=== PATIENT | male | born 1960 | race Caucasian/White ===

== ENCOUNTER 2020-08-22 20:14 | Inpatient (IN) | payer OTHER ==
[~2020-08-22 20:14] MED LIST: Iopamidol-370 76% 500 ML 1 ML ONE
[2020-08-22 20:44] LABS: #Basophils 0.1 thou/uL (0.0-0.2); #Eosinphils 0.1 thou/uL (0.0-0.7); #Lymphocytes 2.5 thou/uL (1.20-3.40); #Monocytes 1.3 thou/uL (0.11-0.59); #Neutrophils 10.9 thou/uL (1.40-6.50); %Basophils 0.4 % (0.0-1.0); %Eosinophils 0.3 % (0.0-10.0); %Lymphocytes 16.9 % (21.0-51.0); %Monocytes 8.6 % (0.0-10.0); %Neutrophils 73.8 % (42.0-75.0); Hemoglobin 15.3 g/dL (14.0-18.0); Mean Corpuscular HGB CONC 34.3 g/dL (32.0-36.0); Mean Corpuscular Hemoglobin 30.3 pg (27.0-31.0); Mean Corpuscular Volume 88.5 fL (78.0-98.0); Mean Platelet Volume 7.5 fL (7.4-10.4); Platelet Count 308 thou/uL (130-400); RBC Distribution Width 12.1 % (11.5-14.5); Red Blood Cell (RBC) Count 5.04 mill/uL (4.70-6.10); White Blood Cell (WBC) Count 14.8 thou/uL (4.8-10.8)
[2020-08-22 21:11] LABS: ALT (SGPT) 35 U/L (8-55); AST (SGOT) 125 U/L (5-34); Albumin 4.1 g/dL (3.4-4.8); Alkaline Phosphatase 68 U/L (40-110); Anion Gap 16 mmol/L (10-20); BUN (Urea Nitrogen) 25 mg/dL (8.4-25.7); Bilirubin, Total 2.1 mg/dL (0.2-1.2); Calc. Creatinine Clearance 0 mL/min (70-130); Calcium 9.2 mg/dL (7.8-10.44); Carbon Dioxide 19 mmol/L (23-31); Chloride 106 mmol/L (98-107); Globulin 2.8 g/dL (2.4-3.5); Glucose 117 mg/dL (80-115); Potassium 3.4 mmol/L (3.5-5.1); Protein, Total 6.9 g/dL (5.8-8.1); Sodium 138 mmol/L (136-145)
[2020-08-22 21:20] LABS: Bacteria/HPF None Seen HPF (None Seen); Bilirubin Negative (Negative); Blood, Urine 2+ (Negative); Clarity Clear (Clear); Glucose, Urine (Dipstick) Normal (Negative); Ketone, Urine Negative (Negative); Leukocyte Negative Leu/uL (Negative); Nitrite Negative (Negative); Protein, Urine (Dipstick) 30 mg/dL (Neg-Trace); Specific Gravity, Urine 1.013 (1.002-1.036); Squamous Epithelial None Seen HPF (0-3); Urobilinogen Normal mg/dL (Less than 2); WBC/HPF 0-3 HPF (0-3); pH, Urine 5.5 (5.0-9.0)
--- NOTE | 2020-08-22 21:21 | RAD ---
EXAM: Single view of the chest HISTORY: Confusion COMPARISON: None FINDINGS: Single view of the chest shows a normal sized cardiomediastinal silhouette. Increased inte rstitial lung markings are present. There is no evidence of consolidation, mass, or pleural effusion. No acute osseous abnormality. IMPRESSION: No evidence of acute cardiopulmonary disease
[2020-08-22 21:28] LABS: Amphetamine Not Detected (NotDetected); Barbiturates Screen Not Detected (NotDetected); Benzodiazepine Screen Not Detected (NotDetected); Cocaine Metabolite Screen Not Detected (NotDetected); Medtox Control Line Valid? VALID (VALID); Medtox Reader # READER 1; Methadone Not Detected (NotDetected); Methamphetamine Not Detected (NotDetected); Opiate Screen Not Detected (NotDetected); Oxycodone Screen Not Detected (NotDetected); Phencyclidine (PCP) Not Detected (NotDetected); THC/Cannabinoid Screen Not Detected (NotDetected); Tricyclic Screen Not Detected (NotDetected)
[2020-08-22 21:32] LABS: Acetaminophen Less than 6.0 mcg/mL (10.0-30.0); Alcohol Less than 10 mg/dL (Less than 10); Salicylate Less than 8.0 mg/dL (15.0-30.0)
[2020-08-22] MEDS ORDERED: Labetalol HCl 100 MG/20 ML VIAL ONE (21:42)
[2020-08-22] MEDS ORDERED: Aspirin Chewable 81 MG TAB ONE (21:42)
--- NOTE | 2020-08-22 21:45 | CT ---
EXAM: CT brain without contrast HISTORY: Confusion and blurry vision COMPARISON: None TECHNIQUE: Multiple contiguous axial images were obtained and a CT of the brain without contrast. FINDINGS: There are scattered hypodensities in the subcortical and periventricular white matter consi stent with small vessel ischemic disease. There is a 2.3 cm area of parenchymal hemorrhage in the right periventricular white matter with surrounding edema. No intraventricular hemorrhage. There is n o evidence of hydrocephalus. The calvarium and overlying soft tissues are unremarkable. The visualized paranasal sinuses and masto id air cells are well aerated. IMPRESSION: Parenchymal hemorrhage in the right parietal white matter as above Dr. Mann notified of findings at 9:44 PM on 08/22/2020
[2020-08-22 21:58] LABS: CKMB 51.5 ng/mL (0-6.6)
[2020-08-22] MEDS ORDERED: niCARdipine 20MG In NaCl 20 MG/200 ML BAG ONE (22:15)
--- NOTE | 2020-08-22 22:59 | CT ---
EXAM: CTA head without and with contrast HISTORY: Parenchymal hemorrhage. Evaluate for underlying vascular abnormality. COMPARISON: None TECHNIQUE: Multiple contiguous axial images were obtained and a CTA of the head without and with contrast. 3-D sagittal and coronal MIP reformats were performed. FINDINGS: There is a stable parenchymal hemorrhage in the right white matter. This is atypical location for a h ypertensive hemorrhage.. There is no evidence of hydrocephalus. No enhancing mass, aneurysm, or AV malformation is seen in the area of hemorrhage. Right intracranial internal carotid artery: Patent without narrowing or occlusion Right anterior cerebral artery: Patent without narrowing or occlusion Right middle cerebral artery: Patent without narrowing or occlusion Left intracranial internal carotid artery: Patent without narrowing or occlusion Left anterior cerebral artery: Patent without narrowing or occlusion Left middle cerebral artery: Patent without narrowing or occlusion No aneurysmal dilatation is seen in the anterior circulation. Right vertebral artery: Patent without narrowing or occlusion Left vertebral artery: Patent without narrowing or occlusion Basilar artery: Patent without narrowing or occlusion The posterior cerebral arteries and cerebellar arteries are patent without narrowing or occlusion. No aneurysmal dilatation is seen in the posterior circulation. The sagittal sinus, sigmoid sinuses, and straight sinuses are patent without evidence of thrombosis. IMPRESSION: 1. No significant CTA abnormality of the head 2. Stable right parietal white matter hemorrhage
[2020-08-22 23:07] LABS: SARS-CoV-2 NAA Rapid Test Not Detected (NotDetected)
[2020-08-22] MEDS ORDERED: Labetalol HCl 100 MG/20 ML VIAL SLOW IVP PRN ×2 (23:12→23:36)
[2020-08-22] MEDS ORDERED: hydrALAZINE 20 MG/ML VIAL SLOW IVP PRN (23:12)
--- NOTE | 2020-08-23 00:35 | PDOC.HHP ---
Hospitalist HPI AMS History of Present Illness: This is a 60-year-old male patient with no significant past medical history who presents to the ED on account of altered mental status. Patient brother gave most of the initial history as patient was initially confused as presentation. 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 Appar ently he had lost the weight to the golf course. On initial evaluation he seemed ANO x4 however history keeps varying according to ED physician. Eventually a CT scan of his head noted left parietal lobe intracerebral bleed. Patient denied any associated headache, head trauma or any antecedent event. Evaluation on arrival noted he had a BP of 201/126, temperature 98.6, pulse 102, respiratory rate 19 and oxygen saturation 97 on room air. Labs showed a mild leukocytosis of 14.8 however globin and platelets were within normal limits. Potassium was 3.4, creatinine 1.36 with no baseline 1 chart, troponin was elevated at 0.1. Noted mild elevated AST at 0.25 glucose at 1.17. Urine was generally unremarkable besides slightly elevated RBCs between 7 and 10. Urine drug screen was negative and his Covid screen was negative as well. His chest x-ray was negative for any acute cardiopulmonary event and CTA noted no significant abnormality besides stable right parietal white matter hemorrhage. Neurosurgery was notified and plan was to monitor him in CCU with systolic blood pressure target of 140. This was maintained on intermittent pushes of labetalol. Hospitalist team was consulted for admission Allergies/Adverse Reactions: Allergy/AdvReac Type Severity Reaction Status Date / Time No Known Allergies Allergy Unverified 08/22/20 23:22 Past History: PMHx: None PSHx: None FHx: None Social: No alcohol history of smoking history Lives alone. Has a brother who would serve as next of kin. Hospitalist Exam General Appearance: awake alert General - other findings: No acute distress Eye: PERRL, anicteric sclera ENT: normocephalic atraumatic, no oropharyngeal lesions Neck: supple, symmetric, no JVD Heart: RRR, no murmur, no gallops Respiratory: CTAB, no wheezes, no rales, no ronchi Gastrointestinal: soft, non-tender, non-distended, normal bowel sounds, no palpable masses, no hepatomegaly, no splenomegaly, no bruit Extremities: no cyanosis, no clubbing, no edema Neurological: cranial nerve grossly intact, no weakness, no focal deficits Psychiatric: normal affect, normal behavior, A&O x 3 Hospitalist Results Result Diagrams: 08/23/20 03:56 08/23/20 03:56 Lab results: Laboratory Last Values WBC 14.8 thou/uL (4.8-10.8) H 08/22/20 20:34 RBC 5.04 mill/uL (4.70-6.10) 08/22/20 20:34 Hgb 15.3 g/dL (14.0-18.0) 08/22/20 20:34 Hct 44.6 % (42.0-52.0) 08/22/20 20:34 MCV 88.5 fL (78.0-98.0) 08/22/20 20:34 MCH 30.3 pg (27.0-31.0) 08/22/20 20:34 MCHC 34.3 g/dL (32.0-36.0) 08/22/20 20:34 RDW 12.1 % (11.5-14.5) 08/22/20 20:34 Plt Count 308 thou/uL (130-400) 08/22/20 20:34 MPV 7.5 fL (7.4-10.4) 08/22/20 20:34 Neutrophils % 73.8 % (42.0-75.0) 08/22/20 20:34 Lymphocytes % 16.9 % (21.0-51.0) L 08/22/20 20:34 Monocytes % 8.6 % (0.0-10.0) 08/22/20 20:34 Eosinophils % 0.3 % (0.0-10.0) 08/22/20 20:34 Basophils % 0.4 % (0.0-1.0) 08/22/20 20:34 Neutrophils # 10.9 thou/uL (1.40-6.50) H 08/22/20 20:34 Lymphocytes # 2.5 thou/uL (1.20-3.40) 08/22/20 20:34 Monocytes # 1.3 thou/uL (0.11-0.59) H 08/22/20 20:34 Eosinophils # 0.1 thou/uL (0.0-0.7) 08/22/20 20:34 Basophils # 0.1 thou/uL (0.0-0.2) 08/22/20 20:34 Sodium 138 mmol/L (136-145) 08/22/20 20:34 Potassium 3.4 mmol/L (3.5-5.1) L 08/22/20 20:34 Chloride 106 mmol/L (98-107) 08/22/20 20:34 Carbon Dioxide 19 mmol/L (23-31) L 08/22/20 20:34 Anion Gap 16 mmol/L (10-20) 08/22/20 20:34 BUN 25 mg/dL (8.4-25.7) 08/22/20 20:34 Creatinine 1.36 mg/dL (0.7-1.3) H 08/22/20 20:34 Estimated GFR (MDRD) 53 08/22/20 20:34 Glucose 117 mg/dL (80-115) H 08/22/20 20:34 Calcium 9.2 mg/dL (7.8-10.44) 08/22/20 20:34 Total Bilirubin 2.1 mg/dL (0.2-1.2) H 08/22/20 20:34 AST 125 U/L (5-34) H 08/22/20 20:34 ALT 35 U/L (8-55) 08/22/20 20:34 Alkaline Phosphatase 68 U/L (40-110) 08/22/20 20:34 Ammonia 41 umol/L (18-72) 08/22/20 21:03 CK-MB (CK-2) 51.5 ng/mL (0-6.6) H* 08/22/20 21:03 Troponin I 0.110 ng/mL (< 0.028) H 08/22/20 21:03 Serum Total Protein 6.9 g/dL (5.8-8.1) 08/22/20 20:34 Albumin 4.1 g/dL (3.4-4.8) 08/22/20 20:34 Globulin 2.8 g/dL (2.4-3.5) 08/22/20 20:34 Albumin/Globulin Ratio 1.5 g/dL (1.2-2.2) 08/22/20 20:34 TSH 3rd Generation 2.8480 uIU/mL (0.35-4.94) 08/22/20 21:03 Urine Color Light-Yellow (Yellow) 08/22/20 20:20 Urine Clarity Clear (Clear) 08/22/20 20:20 Urine pH 5.5 (5.0-9.0) 08/22/20 20:20 Ur Specific [place] 1.013 (1.002-1.036) 08/22/20 20:20 Urine Protein 30 mg/dL (Neg-Trace) A 08/22/20 20:20 Urine Glucose (UA) Normal mg/dL (Negative) 08/22/20 20:20 Urine Ketones Negative mg/dL (Negative) 08/22/20 20:20 Urine Blood 2+ (Negative) A 08/22/20 20:20 Urine Nitrite Negative (Negative) 08/22/20 20:20 Urine Bilirubin Negative (Negative) 08/22/20 20:20 Urine Urobilinogen Normal mg/dL (Less than 2) 08/22/20 20:20 Ur Leukocyte Esterase Negative Yazmin/uL (Negative) 08/22/20 20:20 Urine RBC 7-10 HPF (0-3) A 08/22/20 20:20 Urine WBC 0-3 HPF (0-3) 08/22/20 20:20 Ur Squamous Epith Cells None Seen HPF (0-3) 08/22/20 20:20 Urine Bacteria None Seen HPF (None Seen) 08/22/20 20:20 Salicylates Less than 8.0 mg/dL (15.0-30.0) L 08/22/20 21:03 Urine Opiates Screen Not Detected (NotDetected) 08/22/20 20:20 Ur Oxycodone Screen Not Detected (NotDetected) 08/22/20 20:20 Urine Methadone Screen Not Detected (NotDetected) 08/22/20 20:20 Ur Propoxyphene Screen Not Detected (NotDetected) 08/22/20 20:20 Acetaminophen Less than 6.0 mcg/mL (10.0-30.0) L 08/22/20 21:03 Ur Barbiturates Screen Not Detected (NotDetected) 08/22/20 20:20 Ur Tricyclics Screen Not Detected (NotDetected) 08/22/20 20:20 Ur Phencyclidine Scrn Not Detected (NotDetected) 08/22/20 20:20 Ur Amphetamines Screen Not Detected (NotDetected) 08/22/20 20:20 U Methamphetamines Scrn Not Detected (NotDetected) 08/22/20 20:20 U Benzodiazepines Scrn Not Detected (NotDetected) 08/22/20 20:20 U Cocaine Metab Screen Not Detected (NotDetected) 08/22/20 20:20 U Cannabinoids Screen Not Detected (NotDetected) 08/22/20 20:20 Drug Screen Comment () 08/22/20 20:20 Plasma Alcohol Less than 10 mg/dL (Less than 10) 08/22/20 21:03 Influenza A RNA INAAT Not Detected (NotDetected) 08/22/20 22:04 Influenza B RNA INAAT Not Detected (NotDetected) 08/22/20 22:04 SARS-CoV-2 Rap RNA(RT-PCR) Not Detected (NotDetected) 08/22/20 22:04 Hospitalist H&P A/P Plan: This is a 60-year-old male patient who presents with altered mental status secondary to right parietal lobe intracerebral bleed. Intracerebral hemorrhage Patient is otherwise stable with initial confusion but currently seems to have resolved. Blood pressure target systolic blood pressure of 140. Patient on hydralazine/labetalol pushes. Start nicardipine drip if BP worsens above target Monitor in CCU Neurosurgery following. Hypertensive emergency. Systolic blood pressure presentation above 200 with ICH Currently in the 140s Continue management as above Hypokalemia This is mild of 3.4 Replace potassium Check mag in a.m. NSTEMI Troponin elevated 0.1 This likely is intracranial bleed. No aspirin or anticoagulation at the moment. Monitor on telemetry Consider cardiology consult in a.m. Transaminitis AST elevated at 125. Repeat CMP GI consult if does not resolve MARCIA/CKD Creatinine increase to 1.36 if no baseline Clear with acute or chronic We will do gentle hydration Repeat BMP in a.m. VT prophylaxisSCD CODE STATUSfull code
[2020-08-23] MEDS ORDERED: Ondansetron ODT 4 MG TAB PO PRN (00:53)
[2020-08-23] MEDS ORDERED: Ondansetron PF 4 MG/2 ML Vial IVP PRN (00:53)
[2020-08-23] MEDS ORDERED: niCARdipine 25 MG in Sodium Chloride 0.9% 250 ML 250 ML IVPB PRN (00:54)
[2020-08-23 01:05] VITALS: BMI 32.5
[2020-08-23] MEDS: hydrALAZINE 20 MG/ML VIAL SLOW IVP PRN ×5 (02:58→20:38)
[2020-08-23] MEDS ORDERED: Potassium Chloride 20 MEQ TAB PO SCH (04:00)
[2020-08-23 04:15] LABS: #Basophils 0.1 thou/uL (0.0-0.2); #Eosinphils 0.1 thou/uL (0.0-0.7); #Lymphocytes 2.3 thou/uL (1.20-3.40); #Neutrophils 8.3 thou/uL (1.40-6.50); %Basophils 0.6 % (0.0-1.0); %Eosinophils 0.8 % (0.0-10.0); %Lymphocytes 19.3 % (21.0-51.0); %Monocytes 8.3 % (0.0-10.0); %Neutrophils 71.1 % (42.0-75.0); Hemoglobin 14.8 g/dL (14.0-18.0); Mean Corpuscular HGB CONC 33.8 g/dL (32.0-36.0); Mean Corpuscular Hemoglobin 29.9 pg (27.0-31.0); Mean Corpuscular Volume 88.5 fL (78.0-98.0); Mean Platelet Volume 7.7 fL (7.4-10.4); Platelet Count 299 thou/uL (130-400); RBC Distribution Width 12.2 % (11.5-14.5); Red Blood Cell (RBC) Count 4.96 mill/uL (4.70-6.10); White Blood Cell (WBC) Count 11.7 thou/uL (4.8-10.8)
[2020-08-23] MEDS: Sodium Chloride 0.9% 1,000 ML IV SCH ×2 (04:33→14:30)
[2020-08-23 04:34] LABS: Anion Gap 12 mmol/L (10-20); BUN (Urea Nitrogen) 22 mg/dL (8.4-25.7); Calc. Creatinine Clearance 97 mL/min (70-130); Calcium 9.1 mg/dL (7.8-10.44); Carbon Dioxide 23 mmol/L (23-31); Chloride 106 mmol/L (98-107); Glucose 116 mg/dL (80-115); Potassium 3.4 mmol/L (3.5-5.1); Sodium 138 mmol/L (136-145)
[2020-08-23 04:35] LABS: ALT (SGPT) 35 U/L (8-55); AST (SGOT) 113 U/L (5-34); Albumin 3.9 g/dL (3.4-4.8); Alkaline Phosphatase 59 U/L (40-110); Bilirubin, Direct 0.7 mg/dL (0.1-0.3); Bilirubin, Total 2.5 mg/dL (0.2-1.2); Protein, Total 6.5 g/dL (5.8-8.1)
[2020-08-23] MEDS ORDERED: Potassium Chloride 20 MEQ TAB ONE (04:37)
[2020-08-23 04:39] LABS: Troponin I 0.099 ng/mL (< 0.028)
[2020-08-23] MEDS ORDERED: Electrolyte Replacement Protocol 1 EACH FS SCH (06:15)
[2020-08-23] MEDS ORDERED: Magnesium 2 GM/50 ML BAG (IN WATER) ONE (06:33)
[2020-08-23] MEDS ORDERED: Magnesium 2 GM/50 ML 2 GM in Premix Bag 1 BAG IVPB SCH (06:45)
--- NOTE | 2020-08-23 07:27 | CT ---
PRELIMINARY REPORT/DIRECT RADIOLOGY/EMERGENCY AFTER HOURS PROCEDURE: EXAM: CT Head Without Intravenous Contrast. CLINICAL HISTORY: F/U TECHNIQUE: Axial computed tomography images of the head/brain without intravenous contrast. COMPARISON: CTSR - CT BRAIN WO CON - 08/22/2020 09:35 PM IT SECURITY SPECIALIST FINDINGS: BRAIN: Again seen is a 2.3 cm intraparenchymal hematoma in the right periventricular white matter of the right parietal lobe with surrounding edema. No intraventricular hemorrhage. No midline shift. Hypodensity of the white matter is nonspecific but likely represents chronic microv ascular ischemic disease. Focal hypodensity in the right thalamus extending to the right moore radiata which may represent a chronic focal infarct. VENTRICLES: No hydrocephalus. ORBITS: The orbits are unremarkable. SINUSES AND MASTOIDS: The paranasal sinuses and mastoid air cells are clear. SOFT TISSUES: No significant facial or scalp soft tissue swelling evident. No radiopaque foreign body is seen. BONES: No acute skull fracture. IMPRESSION: Stable 2.3 cm right parietal intraparenchymal hematoma with mild surrounding edema. No n ew intracranial hemorrhage. ELECTRONICALLY SIGNED BY: Florence Guardado MD Aug 23, 2020 5:50:15 AM IT SECURITY SPECIALIST FINAL REPORT HEAD CT WITHOUT CONTRAST: DATE: 08/23/2020. COMPARISON: 08/22/2020. HISTORY: Reevaluate intracranial hemorrhage. FINDINGS: There is an intraaxial hemorrhage posteriorly near the vertex on the right measuring 2.3 cm in AP dim ension, unchanged when compared to the prior exam. Stable surrounding edema. No midline shift or mass effect. Imaged paranasal sinuses and mastoid air cells demonstrate no acute findings. No displac ed calvarial fracture. Periventricular hypodensity noted consistent with white matter disease/small vessel disease. IMPRESSION: Stable intraaxial hemorrhage near the vertex posteriorly on the right. This is an unusual location fo r hemorrhage. Recommend follow-up MRI to evaluate for an underlying lesion. Transcribed Date/Time: 08/23/2020 7:58 AM
[2020-08-23 07:47] LABS: Hemoglobin A1c 5.3 % (4.0-6.0)
[2020-08-23 07:56] LABS: Cardiac Risk 4.7 (Less than 4.5)
[2020-08-23] MEDS ORDERED: Potassium Chloride 20 MEQ/100 ML PREMIX BAG ONE ×2 (09:34→11:29)
[2020-08-23] MEDS: Potassium Chloride 20 MEQ in Premix Bag 1 BAG IVPB SCH ×2 (09:40→11:34)
--- NOTE | 2020-08-23 11:09 | CON ---
DATE OF CONSULTATION: 08/23/2020 HISTORY OF PRESENT ILLNESS: Mr. Parkinson is a 60-year-old male, who presented to the emergency department last night for confusion. He has no existing medical history, as he does not have a PCP he sees for routine medical care. His blood pressure upon presentation was 201/126. Index CT of the head demonstrated a moderate sized acute right parieto-occipital intraparenchymal hemorrhage measuring approximately 2.3 cm with ventricular effacement but no intraventricular extension. There was no associated midline shift. There is mild surrounding vasogenic edema. CTA of the head was completed prior to admission in order to rule out underlying vascular abnormality, such as sinus thrombosis that would have required transfer for higher level of neurologic critical care. CTA of the head was negative for underlying vascular abnormalities. His BP improved with administration of labetalol, and he did not require initiation on a Cardene drip. He was admitted for close neurologic monitoring with plan for CCU bed and repeat CT of the head this morning. This morning, the patient remains in the ED as a CCU hold. He was resting comfortably in bed with an EEG being performed. He denied headache, vision changes, dizziness, nausea, vomiting, shortness of breath, chest pain, or any other concerns. This morning his blood pressure was 172/107 and his heart rate was in the 80s. His neurologic status was stable this morning. He was awake, alert, and appropriate. He was oriented x3 and able to state his name, month, year, city, and facility. Cranial nerves 2 through 12 were intact. He was able to identify a pen and correctly stated its use. He was able to define an island. His extraocular movements were intact. His pupils were equal, round, and reactive. He had no pronator drift. He demonstrated 5/5 strength throughout his upper and lower extremity myotomes bilaterally. The only abnormality noted was that he was somewhat slow to answer my questions, although he did so appropriately. This may be consistent with a verbal apraxia. However, overall, he appeared to be doing quite well neurologically this morning. The patient's repeat CT of the brain completed this morning demonstrates his right parieto-occipital intraparenchymal hemorrhage is stable in size. From a neurosurgical standpoint, so long as patient is not requiring a Cardene drip for maintenance of blood pressure within the goal range, he does not require critical care admission. Our team would like his systolic blood pressure to be maintained below 160 mmHg and diastolic blood pressure below 100 mmHg. Again, if this is controlled with labetalol and hydralazine, he may be admitted to the floor rather than CCU. Our team will arrange for an MRI of the brain with and without contrast in 6 weeks with outpatient followup. Please call for any neurologic changes or other concerns. DIAGNOSES: 1. Atraumatic right parieto-occipital intraparenchymal hemorrhage, stable. 2. Hypertension. This was a 50-minute initial visit, in which greater than 50% of the time was spent in review of records, review of imaging, evaluation, examination, and formulation of a plan. The remaining time was spent in counseling and coordination of care. Job ID: [id number] MTDD
--- NOTE | 2020-08-23 12:34 | CON ---
NEUROLOGY CONSULTATION DATE OF CONSULTATION: 08/23/2020 REASON FOR CONSULTATION: Altered mental status/dizziness. HISTORY OF PRESENT ILLNESS: Mr. Parkinson is a 60-year-old male with no significant past medical history and has not seen a primary care provider for the last 25 years, presented to the emergency room with altered mental status. The patient is brought to the emergency room by his brother because he was confused and the brother found him walking around his backyard. Per patient, he has been complaining of dizziness for the last one week, but he does not recall any episode of confusion. He did not have a primary care provider and does not have any significant past medical history. In the emergency room, he was found to have blood pressure of 201/126, temperature 98.6, pulse 102, and head CT was done, which showed white matter hemorrhage. CTA of the head and neck did not reveal any acute hemodynamically significant stenosis. Neurosurgery was notified and plan was to monitor him in the CCU with a systolic blood pressure target of 140. He was maintained on intermittent purposes of labetalol. Neurology was called to evaluate for an episode of altered mental status, which now seems to be resolved. ALLERGIES: NO KNOWN DRUG ALLERGIES. PAST MEDICAL HISTORY: None. PAST SURGICAL HISTORY: None. FAMILY HISTORY: History of hypertension in the family. SOCIAL HISTORY: Lives alone. He has a brother who serves as next of kin. Denies smoking, alcohol, illegal drug use. VITAL SIGNS: Blood pressure 170/101, pulse 80, respiratory rate 18. PHYSICAL EXAMINATION: General Appearance: awake alert General - other findings: No acute distress Eye: PERRL, anicteric sclera ENT: normocephalic atraumatic, no oropharyngeal lesions Neck: supple, symmetric, no JVD Heart: RRR, no murmur, no gallops Respiratory: CTAB, no wheezes, no rales, no ronchi Gastrointestinal: soft, non-tender, non-distended, normal bowel sounds, no palpable masses, no hepatomegaly, no splenomegaly, no bruit Extremities: no cyanosis, no clubbing, no edema Neurological: Mental Status: The patient is alert and oriented to person, place and time. Speech is clear. Cranial nerves 2 through 12 intact except 7, mild right facial droop. Motor muscle tone and bulk are normal, moving all four extremities equally and symmetrically. Strength 5/5 bilaterally. Sensory intact. Cerebellar, finger-nose testing intact. Gait deferred due to patient's safety reason. DATA REVIEWED: I reviewed the labs and head CT reviewed, which showed stable right parietal lobe hemorrhage. Lab results: Laboratory Last Values WBC 14.8 thou/uL (4.8-10.8) H 08/22/20 20:34 RBC 5.04 mill/uL (4.70-6.10) 08/22/20 20:34 Hgb 15.3 g/dL (14.0-18.0) 08/22/20 20:34 Hct 44.6 % (42.0-52.0) 08/22/20 20:34 MCV 88.5 fL (78.0-98.0) 08/22/20 20:34 MCH 30.3 pg (27.0-31.0) 08/22/20 20:34 MCHC 34.3 g/dL (32.0-36.0) 08/22/20 20:34 RDW 12.1 % (11.5-14.5) 08/22/20 20:34 Plt Count 308 thou/uL (130-400) 08/22/20 20:34 MPV 7.5 fL (7.4-10.4) 08/22/20 20:34 Neutrophils % 73.8 % (42.0-75.0) 08/22/20 20:34 Lymphocytes % 16.9 % (21.0-51.0) L 08/22/20 20:34 Monocytes % 8.6 % (0.0-10.0) 08/22/20 20:34 Eosinophils % 0.3 % (0.0-10.0) 08/22/20 20:34 Basophils % 0.4 % (0.0-1.0) 08/22/20 20:34 Neutrophils # 10.9 thou/uL (1.40-6.50) H 08/22/20 20:34 Lymphocytes # 2.5 thou/uL (1.20-3.40) 08/22/20 20:34 Monocytes # 1.3 thou/uL (0.11-0.59) H 08/22/20 20:34 Eosinophils # 0.1 thou/uL (0.0-0.7) 08/22/20 20:34 Basophils # 0.1 thou/uL (0.0-0.2) 08/22/20 20:34 Sodium 138 mmol/L (136-145) 08/22/20 20:34 Potassium 3.4 mmol/L (3.5-5.1) L 08/22/20 20:34 Chloride 106 mmol/L (98-107) 08/22/20 20:34 Carbon Dioxide 19 mmol/L (23-31) L 08/22/20 20:34 Anion Gap 16 mmol/L (10-20) 08/22/20 20:34 BUN 25 mg/dL (8.4-25.7) 08/22/20 20:34 Creatinine 1.36 mg/dL (0.7-1.3) H 08/22/20 20:34 Estimated GFR (MDRD) 53 08/22/20 20:34 Glucose 117 mg/dL (80-115) H 08/22/20 20:34 Calcium 9.2 mg/dL (7.8-10.44) 08/22/20 20:34 Total Bilirubin 2.1 mg/dL (0.2-1.2) H 08/22/20 20:34 AST 125 U/L (5-34) H 08/22/20 20:34 ALT 35 U/L (8-55) 08/22/20 20:34 Alkaline Phosphatase 68 U/L (40-110) 08/22/20 20:34 Ammonia 41 umol/L (18-72) 08/22/20 21:03 CK-MB (CK-2) 51.5 ng/mL (0-6.6) H* 08/22/20 21:03 Troponin I 0.110 ng/mL (< 0.028) H 08/22/20 21:03 Serum Total Protein 6.9 g/dL (5.8-8.1) 08/22/20 20:34 Albumin 4.1 g/dL (3.4-4.8) 08/22/20 20:34 Globulin 2.8 g/dL (2.4-3.5) 08/22/20 20:34 Albumin/Globulin Ratio 1.5 g/dL (1.2-2.2) 08/22/20 20:34 TSH 3rd Generation 2.8480 uIU/mL (0.35-4.94) 08/22/20 21:03 Urine Color Light-Yellow (Yellow) 08/22/20 20:20 Urine Clarity Clear (Clear) 08/22/20 20:20 Urine pH 5.5 (5.0-9.0) 08/22/20 20:20 Ur Specific [place] 1.013 (1.002-1.036) 08/22/20 20:20 Urine Protein 30 mg/dL (Neg-Trace) A 08/22/20 20:20 Urine Glucose (UA) Normal mg/dL (Negative) 08/22/20 20:20 Urine Ketones Negative mg/dL (Negative) 08/22/20 20:20 Urine Blood 2+ (Negative) A 08/22/20 20:20 Urine Nitrite Negative (Negative) 08/22/20 20:20 Urine Bilirubin Negative (Negative) 08/22/20 20:20 Urine Urobilinogen Normal mg/dL (Less than 2) 08/22/20 20:20 Ur Leukocyte Esterase Negative Yazmin/uL (Negative) 08/22/20 20:20 Urine RBC 7-10 HPF (0-3) A 08/22/20 20:20 Urine WBC 0-3 HPF (0-3) 08/22/20 20:20 Ur Squamous Epith Cells None Seen HPF (0-3) 08/22/20 20:20 Urine Bacteria None Seen HPF (None Seen) 08/22/20 20:20 Salicylates Less than 8.0 mg/dL (15.0-30.0) L 08/22/20 21:03 Urine Opiates Screen Not Detected (NotDetected) 08/22/20 20:20 Ur Oxycodone Screen Not Detected (NotDetected) 08/22/20 20:20 Urine Methadone Screen Not Detected (NotDetected) 08/22/20 20:20 Ur Propoxyphene Screen Not Detected (NotDetected) 08/22/20 20:20 Acetaminophen Less than 6.0 mcg/mL (10.0-30.0) L 08/22/20 21:03 Ur Barbiturates Screen Not Detected (NotDetected) 08/22/20 20:20 Ur Tricyclics Screen Not Detected (NotDetected) 08/22/20 20:20 Ur Phencyclidine Scrn Not Detected (NotDetected) 08/22/20 20:20 Ur Amphetamines Screen Not Detected (NotDetected) 08/22/20 20:20 U Methamphetamines Scrn Not Detected (NotDetected) 08/22/20 20:20 U Benzodiazepines Scrn Not Detected (NotDetected) 08/22/20 20:20 U Cocaine Metab Screen Not Detected (NotDetected) 08/22/20 20:20 U Cannabinoids Screen Not Detected (NotDetected) 08/22/20 20:20 Drug Screen Comment () 08/22/20 20:20 Plasma Alcohol Less than 10 mg/dL (Less than 10) 08/22/20 21:03 Influenza A RNA INAAT Not Detected (NotDetected) 08/22/20 22:04 Influenza B RNA INAAT Not Detected (NotDetected) 08/22/20 22:04 SARS-CoV-2 Rap RNA(RT-PCR) Not Detected (NotDetected) 08/22/20 22:04 ASSESSMENT AND PLAN: Mr. Clement Parkinson is a 60-year-old male with no significant medical history presented with confusion secondary to right parietal lobe intracerebral hemorrhage most likely secondary to hypertensive emergency. Initial head confusion resolved. Consider EEG to rule out cortical irritability. Strict control of blood pressure with target systolic blood pressure of 140. The patient is on hydralazine and labetalol. Continue hydralazine/labetalol pushes and Cardene drip if the blood pressure worsens above target. Monitor in CCU. Telemetry to rule out arrhythmias. Continue medical management per primary team and Neurosurgery surgery. Avoid antiplatelets and anticoagulants due to recent bleed. We will continue to follow. Further recommendations will depend on the results of the neuro checks every 4 hours. We will continue to follow. Further recommendations will depend on the results of the testing. Plan discussed with the patient and the nursing staff. Thank you for the consult. Job ID: [id number] [facility]oren
--- NOTE | 2020-08-23 13:33 | PDOC.EEG ---
Neurology EEG Report - Report Report: This EEG was performed using 24 channel [employer] video EEG machine with 24 disc zan ctrodes. This was an extended 2 hours 5 minutes of inpatient video EEG recording. Digital analysis of the EEG was done for spike and seizure detection which revealed no abnormalities. Background: The posterior background rhythm is 8.5 -9 Hz. The background rhythm attenuates with eye opening and enhances with eye closure. Hyperventilation: Not performed. Photic Stimulation: No significant response. Sleep: Drowsiness and sleep are observed. EEG Diagnosis: Occasional irregular theta activity seen during the recording. Clinical Interpretation: This EEG is consistent with mild generalized nonspecific cerebral dysfunction.
[2020-08-23] MEDS ORDERED: hydrALAZINE 20 MG/ML VIAL ONE ×2 (14:29→20:32)
--- NOTE | 2020-08-23 16:25 | PDOC.HOSPP ---
- Subjective Encounter Date: 08/23/20 Encounter Time: 09:00 Subjective: Patient seen for follow-up for intracranial bleed. Denies chest pain or shortness of breath. - Objective Vital Signs & Weight: Vital Signs (12 hours) Pulse BP 08/23/20 14:32 74 161/100 H 08/23/20 12:03 75 163/88 H Weight Weight 208 lb Result Diagrams: 08/23/20 03:56 08/23/20 03:56 Additional Labs: Labs and MAR reviewed by me EKG Reviewed by me: Yes (Telemetry shows normal sinus rhythm) Hospitalist ROS - Review of Systems Cardiovascular: denies: chest pain, palpitations, orthopnea, paroxysmal noc. dyspnea, edema, light headedness Gastrointestinal: denies: nausea, vomiting, abdominal pain, diarrhea, constipation, melena, hematochezia - Medication Medications: Active Medications Generic Name Dose Route Start Last Admin Trade Name Freq PRN Reason Stop Dose Admin Hydralazine HCl 10 mg 08/22/20 23:36 08/23/20 14:32 Hydralazine 20 Mg/Ml Vial SLOW IVP 10 mg Q15M PRN Administration SBP >160 and HR <100 Sodium Chloride 1,000 mls @ 100 mls/hr 08/23/20 04:00 08/23/20 14:30 Normal Saline 0.9% IV 1,000 mls .Q10H JAMIR Administration Hospitalist Exam Vitals: Vital Signs (12 hours) Pulse BP 08/23/20 14:32 74 161/100 H 08/23/20 12:03 75 163/88 H Weight Weight 208 lb Hosp A/P - Plan Intracerebral hemorrhage Clinically improving. Blood pressure target systolic blood pressure of 140. Continue hydralazine/labetalol pushes. Start nicardipine drip if BP worsens above target Monitor in CCU Neurosurgery consulted. Hypertensive emergency. Resolved Continue management as above Hypokalemia Potassium replaced NSTEMI Likely secondary to demand ischemia from intracranial bleed. Transaminitis Monitor LFTs MARCIA/CKD Trend creatinine and lites VT prophylaxisSCD
[2020-08-24] MEDS: Sodium Chloride 0.9% 1,000 ML IV SCH ×2 (00:43→14:00)
[2020-08-24] MEDS ORDERED: hydrALAZINE 20 MG/ML VIAL ONE (05:30)
[2020-08-24] MEDS: hydrALAZINE 20 MG/ML VIAL SLOW IVP PRN (05:33)
[2020-08-24] MEDS ORDERED: hydrALAZINE 20 MG/ML VIAL SLOW IVP PRN (07:54)
[2020-08-24] MEDS ORDERED: Labetalol HCl 100 MG/20 ML VIAL ONE (07:58)
--- NOTE | 2020-08-24 07:59 | PRG ---
DATE OF SERVICE: 08/24/2020 Mr. Parkinson is hospital day #2 following admission for right parieto-occipital hypertensive hemorrhage. There is a paucity of sympathetics in the posterior circulation of the brain. As such, it is at a bit higher risk for lobar hemorrhages, albeit lobar hemorrhages are not very common and hypertensive bleeds. However, this patient has the aforementioned hemorrhage. CTA was negative. He does have a dolichoectatic posterior circulation now, but that just a product of his vasculopathy. Neurology is also on board. I think continuing to maintain systolic blood pressure at this point below 150, given that he has a couple days out from his bleed, we will plan for an MRI of the brain without and with contrast to rule out underlying neoplasm in 4 to 6 weeks, although he continues to have mild verbal dyspraxia, otherwise neurologically intact. Job ID: [id number]
[2020-08-24] MEDS: Labetalol HCl 100 MG/20 ML VIAL SLOW IVP PRN ×2 (08:02→09:36)
[2020-08-24] MEDS ORDERED: FLU VACC QS2020-21(6MOS UP)/PF 60 MCG/0.5 ML SYRINGE IM ONE (09:00)
[2020-08-24] MEDS ORDERED: Ziprasidone 20 MG VIAL ONE ×3 (09:22→15:56)
[2020-08-24] MEDS ORDERED: Sterile Water 10 ML ONE (09:22)
[2020-08-24] MEDS ORDERED: Lorazepam 2 MG/ML VIAL ONE ×2 (10:29→13:47)
[2020-08-24] MEDS ORDERED: Ziprasidone 20 MG VIAL IM SCH ×3 (10:30→16:00)
--- NOTE | 2020-08-24 10:51 | PDOC.NEUPN ---
- Subjective Encounter Date: 08/24/20 Subjective: Mr. Parkinson had 2 episodes of violent behavior during which he tried to get out of the bed and try to take the monitor out of the wall. Geodon and Haldol was ordered. He is on Cardene drip for blood pressure control. - Objective Vital Signs & Weight: Vital Signs (12 hours) Temp Pulse Resp BP BP Pulse Ox 08/24/20 10:45 77 114/63 08/24/20 10:30 78 140/92 H 08/24/20 10:15 84 148/88 H 08/24/20 10:06 79 178/110 H 08/24/20 09:45 87 157/102 H 08/24/20 09:36 83 182/107 H 08/24/20 09:35 83 18 182/107 H 97 08/24/20 09:00 90 154/101 H 08/24/20 08:53 92 154/101 H 08/24/20 08:36 78 104/62 08/24/20 08:07 88 180/111 H 08/24/20 08:02 90 177/100 H 08/24/20 07:43 98.3 F 90 16 177/100 H 97 08/24/20 05:33 82 167/99 H 08/24/20 04:00 100 08/24/20 03:30 98.2 F 08/24/20 01:00 98.6 F Weight Weight 208 lb Most Recent Monitor Data Heart Rate from ECG 90 NIBP 158/99 NIBP BP-Mean 118 Respiration from ECG 28 I&O: 08/23/20 08/24/20 08/25/20 06:59 06:59 06:59 Output Total 550 Balance -550 Result Diagrams: 08/23/20 03:56 08/23/20 03:56 Radiology Reviewed by me: Yes EKG Reviewed by me: Yes ROS - Review of Systems ROS unobtainable: due to mental status (Patient is extremely agitated did not complete the review of systems) - Medication Medications: Active Medications Generic Name Dose Route Start Last Admin Trade Name Freq PRN Reason Stop Dose Admin Nicardipine HCl 25 mg/ Sodium 260 mls @ 0 mls/hr 08/23/20 00:54 08/24/20 09:58 Chloride IVPB 260 mls INF PRN Administration SBP > 140 Protocol Titrate Sodium Chloride 1,000 mls @ 100 mls/hr 08/23/20 04:00 08/24/20 00:43 Normal Saline 0.9% IV 1,000 mls .Q10H JAMIR Administration Labetalol HCl 20 mg 08/24/20 07:54 08/24/20 09:36 Labetalol Hcl 100 Mg/20 Ml Vial SLOW IVP 20 mg Q10M PRN Administration SBP >150 and HR >100 Ziprasidone 10 mg 08/24/20 10:30 08/24/20 09:25 Ziprasidone 20 Mg Vial IM 08/24/20 12:00 10 mg 1030 JAMIR Administration - Exam General Appearance: NAD Eye: PERRL ENT: normocephalic atraumatic Neck: supple Respiratory: CTAB Cardiovascular: RRR Gastrointestinal: soft Extremities: no cyanosis Skin: normal turgor Neurological: no new deficit Musculoskeletal: normal tone, normal strength, no muscle wasting PSYCH: not oriented (Did not answer to any questions. Patient seems very agitated.) Results - Labs Result Diagrams: 08/23/20 03:56 08/23/20 03:56 Lab results: WBC 11.7 thou/uL (4.8-10.8) H 08/23/20 03:56 Hgb 14.8 g/dL (14.0-18.0) 08/23/20 03:56 Hct 43.9 % (42.0-52.0) 08/23/20 03:56 MCV 88.5 fL (78.0-98.0) 08/23/20 03:56 Plt Count 299 thou/uL (130-400) 08/23/20 03:56 Neutrophils % 71.1 % (42.0-75.0) 08/23/20 03:56 Sodium 138 mmol/L (136-145) 08/23/20 03:56 Potassium 3.4 mmol/L (3.5-5.1) L 08/23/20 03:56 Chloride 106 mmol/L (98-107) 08/23/20 03:56 Carbon Dioxide 23 mmol/L (23-31) 08/23/20 03:56 BUN 22 mg/dL (8.4-25.7) 08/23/20 03:56 Creatinine 1.05 mg/dL (0.7-1.3) 08/23/20 03:56 Glucose 116 mg/dL (80-115) H 08/23/20 03:56 Calcium 9.1 mg/dL (7.8-10.44) 08/23/20 03:56 Total Bilirubin 2.5 mg/dL (0.2-1.2) H 08/23/20 03:56 AST 113 U/L (5-34) H 08/23/20 03:56 ALT 35 U/L (8-55) 08/23/20 03:56 Alkaline Phosphatase 59 U/L (40-110) 08/23/20 03:56 Ammonia 41 umol/L (18-72) 08/22/20 21:03 CK-MB (CK-2) 51.5 ng/mL (0-6.6) H* 08/22/20 21:03 Troponin I 0.099 ng/mL (< 0.028) H 08/23/20 03:56 Serum Total Protein 6.5 g/dL (5.8-8.1) 08/23/20 03:56 Albumin 3.9 g/dL (3.4-4.8) 08/23/20 03:56 Urine Ketones Negative mg/dL (Negative) 08/22/20 20:20 Urine Blood 2+ (Negative) A 08/22/20 20:20 Urine Nitrite Negative (Negative) 08/22/20 20:20 Ur Leukocyte Esterase Negative Yazmin/uL (Negative) 08/22/20 20:20 Urine RBC 7-10 HPF (0-3) A 08/22/20 20:20 Urine WBC 0-3 HPF (0-3) 08/22/20 20:20 Ur Squamous Epith Cells None Seen HPF (0-3) 08/22/20 20:20 Urine Bacteria None Seen HPF (None Seen) 08/22/20 20:20 - Radiology Interpretation CT scan - head Additional Comment: Head CT showed right parietal hemorrhage PN A/P (1) ICH (intracerebral hemorrhage) Code(s): I61.9 - NONTRAUMATIC INTRACEREBRAL HEMORRHAGE, UNSPECIFIED Status: Acute (2) Hypertension Code(s): I10 - ESSENTIAL (PRIMARY) HYPERTENSION Status: Acute (3) Agitation Status: Acute (4) AMS (altered mental status) Code(s): R41.82 - ALTERED MENTAL STATUS, UNSPECIFIED Status: Acute - Plan Daily Plan: PT/OT, DVT proph w/SCDs Mr. Parkinson is a 60-year-old male with no significant past medical history presented with confusion in the setting of hypertensive emergency. This is newly diagnosed hypertension since patient has not seen the provider for the last 25 years and was not not on any blood pressure medications. Confusion resolved yesterday with in the last 24 hours he has hallucinations and exhibited violent behavior requiring medication. Patient seemed agitated this morning Patient continues to be on Cardene drip for blood pressure control target is blood pressure less than [address] showed right parieto-occipital hemorrhage secondary to hypertensive bleed. Neurosurgery is on board and recommended strict blood pressure control. Neurochecks every 4 hours. Avoid antiplatelets and anticoagulants at this time because of recent bleed. EEG completed yesterday and was reviewed which was negative for seizure activity. Continue medical management per primary team and also neurosurgery. DVT prophylaxis. Consider repeat head CT which is acute mental status change in the last 24 hours. Plan discussed in detail with the nursing staff.
[2020-08-24] MEDS ORDERED: Lorazepam 2 MG/ML VIAL SLOW IVP SCH ×2 (11:00→14:00)
[2020-08-24 11:41] VITALS: TEMP 97.6
--- NOTE | 2020-08-24 12:16 | PDOC.HOSPP ---
- Subjective Encounter Date: 08/24/20 Encounter Time: 11:30 Subjective: Patient seen for follow-up regarding intracranial bleed. He is confused today, has episodes of agitation. - Objective Vital Signs & Weight: Vital Signs (12 hours) Temp Pulse Resp BP BP Pulse Ox 08/24/20 12:00 66 121/74 08/24/20 11:56 68 172/87 H 08/24/20 11:40 97.6 F 74 16 153/80 H 97 08/24/20 11:00 72 102/55 L 08/24/20 10:45 77 114/63 08/24/20 10:30 78 140/92 H 08/24/20 10:15 84 148/88 H 08/24/20 10:06 79 178/110 H 08/24/20 09:45 87 157/102 H 08/24/20 09:36 83 182/107 H 08/24/20 09:35 83 18 182/107 H 97 08/24/20 09:00 90 154/101 H 08/24/20 08:53 92 154/101 H 08/24/20 08:36 78 104/62 08/24/20 08:07 88 180/111 H 08/24/20 08:02 90 177/100 H 08/24/20 07:43 98.3 F 90 16 177/100 H 97 08/24/20 05:33 82 167/99 H 08/24/20 04:00 100 08/24/20 03:30 98.2 F 08/24/20 01:00 98.6 F Weight Weight 208 lb Most Recent Monitor Data Heart Rate from ECG 90 NIBP 158/99 NIBP BP-Mean 118 Respiration from ECG 28 I&O: 08/23/20 08/24/20 08/25/20 06:59 06:59 06:59 Output Total 550 Balance -550 Result Diagrams: 08/23/20 03:56 08/23/20 03:56 Additional Labs: I reviewed patient's labs and MAR EKG Reviewed by me: Yes (Normal sinus rhythm on telemetry) Hospitalist ROS - Review of Systems ROS unobtainable: due to mental status - Medication Medications: Active Medications Generic Name Dose Route Start Last Admin Trade Name Freq PRN Reason Stop Dose Admin Nicardipine HCl 25 mg/ Sodium 260 mls @ 0 mls/hr 08/23/20 00:54 08/24/20 09:58 Chloride IVPB 260 mls INF PRN Administration SBP > 140 Protocol Titrate Sodium Chloride 1,000 mls @ 100 mls/hr 08/23/20 04:00 08/24/20 00:43 Normal Saline 0.9% IV 1,000 mls .Q10H JAMIR Administration Labetalol HCl 20 mg 08/24/20 07:54 08/24/20 09:36 Labetalol Hcl 100 Mg/20 Ml Vial SLOW IVP 20 mg Q10M PRN Administration SBP >150 and HR >100 Lorazepam 1 mg 08/24/20 11:00 08/24/20 10:35 Lorazepam 2 Mg/Ml Vial SLOW IVP 08/24/20 13:00 1 mg NOW JAMIR Administration Hospitalist Exam Vitals: Vital Signs (12 hours) Temp Pulse Resp BP BP Pulse Ox 08/24/20 12:00 66 121/74 08/24/20 11:56 68 172/87 H 08/24/20 11:40 97.6 F 74 16 153/80 H 97 08/24/20 11:00 72 102/55 L 08/24/20 10:45 77 114/63 08/24/20 10:30 78 140/92 H 08/24/20 10:15 84 148/88 H 08/24/20 10:06 79 178/110 H 08/24/20 09:45 87 157/102 H 08/24/20 09:36 83 182/107 H 08/24/20 09:35 83 18 182/107 H 97 08/24/20 09:00 90 154/101 H 08/24/20 08:53 92 154/101 H 08/24/20 08:36 78 104/62 08/24/20 08:07 88 180/111 H 08/24/20 08:02 90 177/100 H 08/24/20 07:43 98.3 F 90 16 177/100 H 97 08/24/20 05:33 82 167/99 H 08/24/20 04:00 100 08/24/20 03:30 98.2 F 08/24/20 01:00 98.6 F Weight Weight 208 lb Most Recent Monitor Data Heart Rate from ECG 90 NIBP 158/99 NIBP BP-Mean 118 Respiration from ECG 28 General Appearance: awake alert ENT: normocephalic atraumatic Neck: supple Heart: RRR Respiratory: CTAB Gastrointestinal: soft Skin: no rashes Musculoskeletal: no muscle wasting Psychiatric: normal affect Hosp A/P - Plan Intracerebral hemorrhage confused today Blood pressure target systolic blood pressure of 140. Continue hydralazine/labetalol pushes. Patient in ER hold, awaiting CCU bed. As needed Geodon for agitation, Haldol out of stock. Hypertensive emergency. Resolved Hypokalemia Check a.m. labs NSTEMI Likely secondary to demand ischemia from intracranial bleed. Transaminitis Monitor LFTs MARCIA/CKD Trend creatinine and lites VT prophylaxisSCD
--- NOTE | 2020-08-24 13:26 | CT ---
Exam: Head CT without contrast HISTORY: Follow-up hemorrhage. COMPARISON: 08/22/2020 and 08/23/2020 FINDINGS: Hemorrhage: Redemonstration of a right parietal lobe intraparenchymal hemorrhage measuring 2.2 cm med iolateral by 2.5 cm anterior-posterior by 3.9 cm cranial caudal. Stable associated edema. Brain parenchyma: Cortical loaiza-white matter differentiation is preserved. No mass effect or midline shift. Basilar cisterns are patent.Stable chronic small vessel ischemic changes of the white Ventricular system: Ventricles and sulci are patent and symmetric. Calvarium: Intact. Sinuses and mastoid air cells: Adequate aeration. IMPRESSION: Stable intracranial hemorrhage.
--- NOTE | 2020-08-24 15:41 | PDOC.DS.DS ---
Provider Date of Admission: 08/22/20 23:38 Date of Discharge: 08/24/20 Admitting Provider: João Rapp MD Consultations: Neurology (Dr. Salomon), Neurosurgery (Dr. Henley) Primary Care Physician: NO PCP PROVIDER Course Hospital Course: Discharge diagnosis: 1. Intracranial bleed 2. Acute metabolic encephalopathy 3. Hypertensive emergency 4. Hyponatremia 5. Abnormal liver function tests 6. Non-ST elevation myocardial infarction type II secondary to intracranial bleed 7. Dyslipidemia 8. Influenza test negative 9. Covid test negative Hospital course: Patient is a pleasant 60-year-old gentleman who was admitted to the hospital on August 22, 2020 for altered mental status. Noncontrast CT scan of the brain showed parenchymal hemorrhage in the right parietal white matter. CT angiogram did not show any significant CT abnormality of the head. He was seen by neurosurgery service. He was managed conservatively, by controlling the blood pressure. Normal sinus rhythm on telemetry had repeat CT scans, which did not show any progression of the bleed. He did have episodes of agitation and confusion. He received medications for this. He was also seen by neurology service. Normal sinus rhythm on telemetry was consistent with mild generalized nonspecific cerebral dysfunction. He was in the emergency room waiting for MICU bed availability. ICU bed became available at [facility] on August 24, 2020. He is being discharged to [facility] for further management. Many thanks for allowing me to participate in your patient's care. Please feel free to contact me with any questions or concerns. Discharge destination: [place] [facility] Total amount of time spent coordinating this discharge: 33 minutes Lab Results: 08/23/20 03:56 08/23/20 03:56 Abnormal Lab Results - Last 48 hrs 08/22/20 20:20: Urine Protein 30 A, Urine Blood 2+ A, Urine RBC 7-10 A 08/22/20 20:34: Potassium 3.4 L, Carbon Dioxide 19 L, Creatinine 1.36 H, Total Bilirubin 2.1 H, AST 125 H 08/22/20 20:34: WBC 14.8 H, Lymphocytes % 16.9 L, Neutrophils # 10.9 H, Monocytes # 1.3 H 08/22/20 21:03: Salicylates Less than 8.0 L, Acetaminophen Less than 6.0 L 08/22/20 21:03: CK-MB (CK-2) 51.5 H*, Troponin I 0.110 H 08/23/20 03:56: Potassium 3.4 L 08/23/20 03:56: WBC 11.7 H, Lymphocytes % 19.3 L, Neutrophils # 8.3 H, Monocytes # 1.0 H 08/23/20 03:56: Total Bilirubin 2.5 H, Direct Bilirubin 0.7 H, AST 113 H 08/23/20 03:56: Troponin I 0.099 H 08/23/20 07:21: Cholesterol 215 H Vitals: Vital Signs (12 hours) Temp Pulse Resp BP BP Pulse Ox 08/24/20 15:30 141/77 H 08/24/20 15:15 120/67 08/24/20 15:00 78 18 141/96 H 96 08/24/20 14:30 76 160/106 H 08/24/20 14:15 78 144/87 H 08/24/20 14:00 157/98 H 08/24/20 13:45 146/76 H 08/24/20 13:30 136/78 08/24/20 13:19 68 145/96 H 08/24/20 13:02 64 113/69 08/24/20 12:45 66 116/66 08/24/20 12:30 68 117/78 08/24/20 12:15 68 113/70 08/24/20 12:00 66 121/74 08/24/20 11:56 68 172/87 H 08/24/20 11:40 97.6 F 74 16 153/80 H 97 08/24/20 11:00 72 102/55 L 08/24/20 10:45 77 114/63 08/24/20 10:30 78 140/92 H 08/24/20 10:15 84 148/88 H 08/24/20 10:06 79 178/110 H 08/24/20 09:45 87 157/102 H 08/24/20 09:36 83 182/107 H 08/24/20 09:35 83 18 182/107 H 97 08/24/20 09:00 90 154/101 H 08/24/20 08:53 92 154/101 H 08/24/20 08:36 78 104/62 08/24/20 08:07 88 180/111 H 08/24/20 08:02 90 177/100 H 08/24/20 07:43 98.3 F 90 16 177/100 H 97 08/24/20 05:33 82 167/99 H 08/24/20 04:00 100 Weight Weight 208 lb Most Recent Monitor Data Heart Rate from ECG 90 NIBP 158/99 NIBP BP-Mean 118 Respiration from ECG 28 Physical Exam: The patient was seen and examined on the day of discharge. Please refer to my daily progress note for further details regarding this [id number] encounter. Plan Allergies: No Known Allergies Allergy (Verified 08/24/20 00:15) Referrals: PROVIDER,NO PCP [Primary Care Provider] - Disposition: HOME Quality CORE MEASURES:: N/A
[2020-08-24 16:40] VITALS: BP 135/89
[2020-08-24] MEDS ORDERED: niCARdipine 20MG In NaCl 20 MG/200 ML BAG ONE (16:47)
== END 2020-08-25 16:55 | disposition short-term general hospital (02) | DRG 64 ==
LOC: ERS 20:14 → ERHOLD 23:38
PROVIDERS: ADMIT Student in an Organized Health Care Education/Training Program; ATTEND Internal Medicine
DX: I61.1 Nontraumatic intracerebral hemorrhage in hemisphere, cortical (principal); I21.A1 Myocardial infarction type 2; G93.41 Metabolic encephalopathy; I16.1 Hypertensive emergency; N17.9 Acute kidney failure, unspecified; E87.1 Hypo-osmolality and hyponatremia; E87.6 Hypokalemia; R74.01 Elevation of levels of liver transaminase levels; N18.9 Chronic kidney disease, unspecified; I12.9 Hypertensive chronic kidney disease with stage 1 through stage 4 chronic kidney disease, or unspecified chronic kidney disease; E78.5 Hyperlipidemia, unspecified; Z20.822 Contact with and (suspected) exposure to COVID-19
CPT/HCPCS: 0240U; 36415; 70450; 70496; 71045; 80048; 80053; 80061; 80076; 80306; 80307; 81003; 81015; 82140; 82553; 83036; 83735; 84443; 84484; 85025; 93005; 95712; 95819; 95957; 96374; 96376; J0360; J0690; J2060; J3475; J3480; J3486; J7050; Q9967